=== PATIENT | female | born 1940 | race Caucasian/White ===

== ENCOUNTER 2018-03-27 19:30 | Inpatient (IN) ==
--- NOTE | 2018-03-27 20:04 | Emergency Department Note ---
Disposition Clinical Impression: Pulmonary embolism Qualifiers: Pulmonary embolism type: other Chronicity: acute Acute cor pulmonale presence: with acute cor pulmonale Qualified Code(s): I26.09 - Other pulmonary embolism with acute cor pulmonale Dyspnea Qualifiers: Dyspnea type: unspecified Qualified Code(s): R06.00 - Dyspnea, unspecified Disposition: Admitted As Inpatient Condition: Good Referrals: Anna Corona, [employer] INST[employer]ER [Primary Care Provider] - Time of Disposition: 22:42 General Adult HPI - General Chief complaint: ED Shortness of Breath/Dyspnea Stated complaint: SOB, Weakness Time Seen by Provider: 03/27/18 19:46 Source: patient, family Mode of arrival: ambulatory Limitations: no limitations Nursing Notes Reviewed: Yes Vital Signs Reviewed: Yes - History of Present Illness HPI Narrative: Patient is a 78 year old female that presents emergency Department shortness of breath. Patient states this is been ongoing for the past 3 weeks. Patient states that she will have an occasional cough. But has not had any hemoptysis. 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 Also reports that she has a past medical history of breast cancer with a lumpectomy. Patient states that she has no longer on any chemotherapy or radiation. Patient states that this feels somewhat similar to when she had a blood clot in her lungs. Patient denies any fevers or chills. Patient states that he has not otherwise had any productivity to her cough. She states that she will occasionally get chest pain located in the epigastric chest. Pain Scale: 0 - Related Data Home Medications Medication Instructions Recorded Confirmed Acetaminophen/Aspirin/Caffeine 500 mg PO Q6H PRN 12/15/17 03/14/18 [Excedrin EX] Cyanocobalamin (Vitamin B-12) 1,000 mcg PO DAILY 12/15/17 03/14/18 [Vitamin B-12] Docusate [Colace] 100 mg PO DAILY 12/15/17 03/14/18 Ergocalciferol (VITAMIN D2) 50,000 unit PO TU 12/15/17 03/14/18 [Vitamin D2] Gluc/Carlos-MSM#2/C/D3/Michael/Born 1 tab PO DAILY 12/15/17 03/14/18 [Lfeuvhyhlt-Yjkwrnzoufu-LJF Tab] Nystatin Cream [Mycostatin Cream] 1 appl TP BID PRN 12/15/17 03/14/18 Omeprazole [PriLOSEC] 20 mg PO DAILY 12/15/17 03/14/18 Calcium Carbonate [Calcium] 500 mg PO BID 03/14/18 03/14/18 Cholecalciferol (Vitamin D3) 500 unit PO BID 03/14/18 03/14/18 [Vitamin D] Previous Rx's Medication Instructions Recorded Anastrozole [Arimidex] 1 mg PO DAILY #90 tablet 03/14/18 Handicap Placard 1 each .ROUTE AD #1 each 03/14/18 Allergies Allergy/AdvReac Type Severity Reaction Status Date / Time No Known Allergies Allergy Verified 03/27/18 19:45 All systems ED: reviewed and negative except as stated. Constitutional: Denies: fever Cardiovascular: Reports: chest pain Respiratory: Reports: cough, dyspnea. Denies: wheezes, hemoptysis, sputum production Past Medical History - Past Medical History Medical history: Reports: arthritis, DVT, GERD, pulmonary embolus Surgical history: Reports: hysterectomy, orthopedic, other, other Psychiatric history: Reports: no psych history - Social History Smoking Status: Never smoker Smokeless Tobacco Status: No Alcohol use: Reports: none Drug use: Reports: none Physical Exam - General Limitations: no limitations General appearance: alert, in no apparent distress - Head Head exam: atraumatic, normocephalic - Eye Eye exam: Present: normal appearance, EOMI - Neck Neck exam: Present: normal inspection, full ROM, trachea midline - Respiratory Respiratory exam: Present: normal lung sounds bilaterally. Absent: respiratory distress, wheezes - Cardiovascular Cardiovascular exam: Present: regular rate, normal rhythm, normal heart sounds, +S1, +S2 - Abdominal Exam Abdominal exam: Present: soft, Non-Tender, normal bowel sounds - Neurological Exam Neurological exam: Present: alert, oriented X3 - Psychiatric Psychiatric exam: Present: normal affect, normal mood - Skin Skin exam: Present: warm, dry, intact Course Vital Signs Temperature 97.7 F 03/27/18 19:41 Pulse Rate 73 03/27/18 19:41 Respiratory Rate 22 03/27/18 19:41 Blood Pressure 138/88 03/27/18 19:41 O2 Sat by Pulse Oximetry 94 03/27/18 19:41 Temperature 97.7 F 03/27/18 19:41 Pulse Rate 69 03/27/18 21:30 Respiratory Rate 15 03/27/18 21:30 Blood Pressure 144/80 03/27/18 21:30 O2 Sat by Pulse Oximetry 97 03/27/18 21:30 Oxygen Delivery Oxygen Delivery Nasal Cannula Medical Decision Making - MDM Narrative Medical decision making narrative: Due to the patient presenting to the emergency department with reports of shortness of breath and a history of PE and breast cancer there is concern that there could potentially be a cardiac versus pulmonary etiology. We will obtain basic laboratory tests included CBC, BMP, troponin chest x-ray and EKG. A d- dimer will also be obtained. A CTA of the chest will be obtained due to the patient having a significantly elevated d-dimer greater than 5000. CT of the chest was positive for pulmonary emboli. Patient had bilateral PEs. There was evidence of heart strain on the CT scan. Patient was started on standard dose heparin drip will be admitted to the hospital. The patient did not have any acute ischemic changes on her EKG. Troponin was not elevated. The patient's BNP was 542. The remainder the laboratory testing was relatively unremarkable. I called and spoke the admitting hospitalist and he has accepted the patient to their service. Patient be admitted to the hospital at this time for further evaluation and management. - Medical Records Medical records reviewed: Yes I reviewed the patient's medical records. - Lab Data Lab results reviewed: Yes I reviewed the patient's lab results. Result diagrams: 03/27/18 20:18 03/27/18 20:18 Lab Results 03/27/18 03/27/18 03/27/18 Range/Units 20:18 20:18 20:18 WBC 4.6 (4.3-11.1) K/mcL RBC 4.74 (3.82-4.97) M/mcL Hgb 13.7 (11.5-15.4) g/dL Hct 42.6 (35.3-44.9) % MCV 89.9 (83.0-100.0) fL MCH 28.9 (28.0-33.3) pg MCHC 32.2 (31.6-35.5) g/dL RDW 15.0 H (11.5-14.5) % Plt Count 223 (140-400) K/mcL MPV 10.0 (9.4-12.4) fL Immature Gran % 0.2 (0-4) % Seg Neutrophils % 51.7 % Lymphocytes % 37.9 % Monocytes % 8.7 % Eosinophils % 1.1 % Basophils % 0.4 % Neutrophils # 2.4 (1.6-8.9) K/mcL Lymphocytes # 1.7 (0.6-4.6) K/mcL Monocytes # 0.4 (0.0-1.3) K/mcL Eosinophils # 0.1 (0.0-0.6) K/mcL Basophils # 0.0 (0.0-0.2) K/mcL PT 12.1 (9.4-12.1) Seconds INR 1.1 D-Dimer 5286 H (0-500) ng/mLFEU Sodium 141 (136-145) mEq/L Potassium 3.4 L (3.5-5.1) mEq/L Chloride 112 H (98-107) mEq/L Carbon Dioxide 20 L (23-29) mEq/L BUN 25 H (8-23) mg/dL Creatinine 0.79 (0.60-1.20) mg/dL Est GFR ( Amer) > 60 (> 60) Est GFR (Non-Af Amer) > 60 (> 60) BUN/Creatinine Ratio 32 H (6-26) Glucose 105 (70-105) mg/dL Calculated Osmolality 297 (280-300) Lactic Acid (0.5-2.2) mmol/L Calcium 8.9 (8.6-10.3) mg/dL Troponin I < 0.03 (< 0.04) ng/mL B-Natriuretic Peptide (Less than 100) pg/mL 03/27/18 03/27/18 Range/Units 20:18 20:18 WBC (4.3-11.1) K/mcL RBC (3.82-4.97) M/mcL Hgb (11.5-15.4) g/dL Hct (35.3-44.9) % MCV (83.0-100.0) fL MCH (28.0-33.3) pg MCHC (31.6-35.5) g/dL RDW (11.5-14.5) % Plt Count (140-400) K/mcL MPV (9.4-12.4) fL Immature Gran % (0-4) % Seg Neutrophils % % Lymphocytes % % Monocytes % % Eosinophils % % Basophils % % Neutrophils # (1.6-8.9) K/mcL Lymphocytes # (0.6-4.6) K/mcL Monocytes # (0.0-1.3) K/mcL Eosinophils # (0.0-0.6) K/mcL Basophils # (0.0-0.2) K/mcL PT (9.4-12.1) Seconds INR D-Dimer (0-500) ng/mLFEU Sodium (136-145) mEq/L Potassium (3.5-5.1) mEq/L Chloride (98-107) mEq/L Carbon Dioxide (23-29) mEq/L BUN (8-23) mg/dL Creatinine (0.60-1.20) mg/dL Est GFR ( Amer) (> 60) Est GFR (Non-Af Amer) (> 60) BUN/Creatinine Ratio (6-26) Glucose (70-105) mg/dL Calculated Osmolality (280-300) Lactic Acid 1.1 (0.5-2.2) mmol/L Calcium (8.6-10.3) mg/dL Troponin I (< 0.04) ng/mL B-Natriuretic Peptide 542 H (Less than 100) pg/mL - Radiology Data Radiology results reviewed: Yes I reviewed the patient's radiology results. Chest X-Ray 03/27/18 20:01 IMPRESSION: No acute process. D/ / Florentin Viramontes MD / Florentin Viramontes MD Interpreting Provider: Florentin Viramontes MD Chest CTA 03/27/18 20:45 IMPRESSION: Bilateral central pulmonary emboli. There are CT signs which can be seen with right heart strain including increased RV/LV ratio as well as reflux of contrast into the intrahepatic inferior vena cava and hepatic veins. Findings were called to the ordering service at 10:16 pm on 03/27/2018. D/ / June Wynn Cha, MD / June Wynn Cha, MD Interpreting Provider: June Wynn Cha, MD - EKG Data EKG #1 EKG attestation: Yes I reviewed and interpreted this EKG. EKG results narrative: EKG shows sinus rhythm at a rate of 72 bpm, [place] interval 144, curious duration 96, QTc of 494. There is no evidence of STEMI on EKG. There are diffuse T-wave inversions in the anterior lateral and inferior leads. Attestation Statement - Attestation Attestation: I, Kyaw Arredondo, examined this patient and my medical decision-making was reviewed with the PHERESIS SPECIALIST/PA/Advanced Practice Nurse/Resident Physician. I agree with the documented findings, disposition and treatment plan as described except to the extent set forth below. 78-year-old female presents emergency Department with concerns of shortness of breath. Patient states she becomes short of breath with exertion over the past 3 weeks. Patient has a history of prior DVT and PE. Patient recently diagnosed with breast cancer and is status post resection. Patient has mild intermittent chest pain which is described as a pressure in the center of her chest with exertion. Denies fever, chills, nausea, vomiting, cough, fever, chills, abdominal pain. Patient had elevated d-dimer. CTA of the chest showed large bilateral central PEs. Initial troponin negative. Patient started on heparin and admitted to hospitalist.
[2018-03-27 20:33] LABS: Basophils % 0.4 %; Eosinophils # 0.1 K/mcL (0.0-0.6); Eosinophils % 1.1 %; Hematocrit 42.6 % (35.3-44.9); Hemoglobin 13.7 g/dL (11.5-15.4); Immature Granulocytes % 0.2 % (0-4); Lymphocytes # 1.7 K/mcL (0.6-4.6); Lymphocytes % 37.9 %; Mean Corpuscular HGB Conc 32.2 g/dL (31.6-35.5); Mean Corpuscular Hemoglobin 28.9 pg (28.0-33.3); Mean Corpuscular Volume 89.9 fL (83.0-100.0); Monocytes # 0.4 K/mcL (0.0-1.3); Monocytes % 8.7 %; Neutrophils # 2.4 K/mcL (1.6-8.9); Platelet Count 223 K/mcL (140-400); Red Blood Count 4.74 M/mcL (3.82-4.97); Segmented Neutrophils % 51.7 %
[2018-03-27 20:41] LABS: INR 1.1; Prothrombin Time 12.1 Seconds (9.4-12.1)
[2018-03-27] MEDS ORDERED: Isovue-370 500 ML INFUS..BTL IV ONE (20:45)
[2018-03-27 20:52] LABS: BUN/Creatinine Ratio 32 (6-26); Blood Urea Nitrogen 25 mg/dL (8-23); Calcium 8.9 mg/dL (8.6-10.3); Carbon Dioxide 20 mEq/L (23-29); Chloride 112 mEq/L (98-107); Glucose 105 mg/dL (70-105); Osmolality,Calculated 297 (280-300); Potassium 3.4 mEq/L (3.5-5.1); Sodium 141 mEq/L (136-145); eGFR For Non-African Americans > 60 (> 60)
[2018-03-27 20:53] LABS: Troponin I < 0.03 ng/mL (< 0.04)
[2018-03-27] MEDS ORDERED: *HR* Heparin 5,000 UNIT/ML VIAL IVP PRN ×2 (22:25)
[2018-03-27] MEDS ORDERED: *HR* Heparin 5,000 UNIT/ML VIAL IVP ONE (22:25)
[2018-03-27] MEDS ORDERED: Heparin 25,000 UNIT/500 ML D5W 25,000 UNIT/500 ML BAG IVC SCH (22:30)
[2018-03-27] MEDS ORDERED: Naloxone 0.4 MG/ML INJ IVP PRN (22:58)
--- NOTE | 2018-03-27 23:10 | Internal Med History&Physical ---
Date of Encounter: 03/27/18 Time of Encounter: 23:09 Internal Medicine - H&P: HPI Chief complaint: Short of breath History of present illness: Ms. Kaiser is a 78 year old female with a past medical history of arthritis, PE/DVT (treated with 6 months anticoagulation) and recently diagnosed breast cancer earlier this year who presented to the ED due to difficulty breathing. Her shortness of breath has been ongoing for the past 3 weeks associated with an occasional non-productive cough and is associated primarily with exertion. Her shortness of breath with exertion has become progressively worse and today noted one episode of lightheadedness. Patient reports symptoms appear similar when she had a previous blood clot in her lungs. Denies any fever, chills, hem optysis or chest pain. On arrival patient was afebrile and hemodynamically stable satting at 94% on 2 L. laboratory workup was notable for an elevated d-dimer of over 5000. CTA was performed which showed bilateral central pulmonary emboli associated with right heart strain. Initial troponin and EKG were unremarkable. She was started on heparin in the ED and brought up for observation. Past Med Surg Social Fam HX - Past Medical History Medical history: arthritis, DVT, GERD, pulmonary embolus Additional medical history: rosacea,cataracts, left breast intraductal carcinoma grade II Psychiatric history: no psych history - Past Surgical History Surgical History: hysterectomy, orthopedic, other, other Additional surgical history: hysterectomy/bladder repair-1974, right bunionectomy,left bunionectmy,colonoscopy,left forearm,replace plate left forearm,replaced rods and screws in left forearm,left forearm removal of deep implant loose K wire,ultra sound guided left breast biopsy - Social History Smoking Status: Never smoker Smokeless Tobacco Status: No Alcohol use: none Drug use: none - Family History Father Hx Family Cancer: Yes (stomach) Internal Medicine - H&P: Meds Acetaminophen/Aspirin/Caffeine [Excedrin EX] 500 mg PO Q6H PRN 12/15/17 [History] Cyanocobalamin (Vitamin B-12) [Vitamin B-12] 1,000 mcg PO DAILY 12/15/17 [History] Docusate [Colace] 100 mg PO DAILY 12/15/17 [History] Ergocalciferol (VITAMIN D2) [Vitamin D2] 50,000 unit PO TU 12/15/17 [History] Gluc/Carlos-MSM#2/C/D3/Michael/Born [Wuphqhoolt-Mrgtmxzkiel-EGC Tab] 1 tab PO DAILY 12/15/17 [History] Nystatin Cream [Mycostatin Cream] 1 appl TP BID PRN 12/15/17 [History] Omeprazole [PriLOSEC] 20 mg PO DAILY 12/15/17 [History] Anastrozole [Arimidex] 1 mg PO DAILY #90 tablet 03/14/18 [Rx] Calcium Carbonate [Calcium] 500 mg PO BID 03/14/18 [History] Cholecalciferol (Vitamin D3) [Vitamin D] 500 unit PO BID 03/14/18 [History] Handicap Placard 1 each .ROUTE AD #1 each 03/14/18 [Rx] Allergy/AdvReac Type Severity Reaction Status Date / Time No Known Allergies Allergy Verified 03/27/18 19:45 All Systems PM: A 10-system review of systems was performed and is negative for pertinent findings except as documented above in the HPI. - Constitutional Constitutional: no chills, no fever(s), no night sweats - EENT Eyes: no change in vision, no discharge, no pain, no photophobia Ears: no ear discharge, no ear pain, no tinnitus Nose, mouth and throat: no dysphagia, no nasal discharge, no neck pain, no sore throat - Cardiovascular Cardiovascular ROS IM: no chest pain, no diaphoresis, no dyspnea, no l ightheadedness, no palpitations, no syncope - Respiratory Respiratory: no cough, no dyspnea, no wheezing, no excessive phlegm production - Gastrointestinal Gastrointestinal: no abdominal pain, no diarrhea, no hematemesis, no hematochezia, no melena, no nausea, no vomiting - Genitourinary Genitourinary: no change in urinary stream, no dysuria, no flank pain, no hematuria - Musculoskeletal Musculoskeletal ROS IM: no numbness, no tingling - Integumentary Integumentary IM: no rash, no unusual bruising - Neurological Neurological ROS: no confusion, no convulsions, no focal weakness, no numbness, no tingling, no tremor(s) - Hematologic/Lymphatic Hematologic/Lymphatic: no easy bruising - Constitutional Vitals: Temp Pulse Resp BP Pulse Ox 97.7 F 69 15 144/80 97 03/27/18 19:41 03/27/18 21:30 11/26/18 21:30 03/27/18 21:30 03/27/18 21:30 Exam: General: Alert and oriented 3; lying in bed in no acute distress Skin:Normal color, no rash, no lesions. HEENT:EOM, pupils equal, round and reactive. Cardiovascular:Normal S1 & S2, no rubs, murmurs or gallops. No JVD. Pulse regular. Lungs:Normal breath sounds, no wheezes or crackles. Abdomen:Soft, non-tender, no rigidity. Extremities:No deformity, no edema or tenderness, no joint swelling or clubbing. Neurological:Normal cognition and motor skills. Pulses:Carotid and radial pulses normal +2. Rest of the physical exam is non contributory Internal Med - H&P Results - Labs CBC & Chem 7: 03/28/18 01:36 03/28/18 01:36 Labs: Short CBC 03/27/18 Range/Units 20:18 WBC 4.6 (4.3-11.1) K/mcL Hgb 13.7 (11.5-15.4) g/dL Hct 42.6 (35.3-44.9) % Plt Count 223 (140-400) K/mcL Neutrophils # 2.4 (1.6-8.9) K/mcL BMP 03/27/18 20:18 Sodium 141 Potassium 3.4 L Chloride 112 H Carbon Dioxide 20 L BUN 25 H Creatinine 0.79 Glucose 105 Calcium 8.9 Cardiac Enzymes 03/27/18 Range/Units 20:18 Troponin I < 0.03 (< 0.04) ng/mL - Impressions ITS Impressions Chest X-Ray 03/27/18 20:01 IMPRESSION: No acute process. D/ / Florentin Viramontes MD / Florentin Viramontes MD Interpreting Provider: Florentin Viramontes MD Chest CTA 03/27/18 20:45 IMPRESSION: Bilateral central pulmonary emboli. There are CT signs which can be seen with right heart strain including increased RV/LV ratio as well as reflux of contrast into the intrahepatic inferior vena cava and hepatic veins. Findings were called to the ordering service at 10:16 pm on 03/27/2018. D/ / June Wynn Cha, MD / June Wynn Cha, MD Interpreting Provider: June Wynn Cha, MD - Assessment and plan (1) Dyspnea Current Visit: Yes Status: Acute Assessment and plan: 3 week history of worsening dyspnea upon exertion secondary most likely secondary to bilateral central PEs as seen on CTA in the setting of history of breast cancer. Patient stable from a respiratory standpoint -Continue supportive care -Heparin drip Qualifiers: Dyspnea type: unspecified Qualified Code(s): R06.00 - Dyspnea, unspecified (2) Pulmonary embolism Current Visit: Yes Status: Acute Assessment and plan: CT angiogram demonstrates bilateral pulmonary emboli which can be seen with right heart strain. Initial EKG and troponins were negative. Patient does not have any reports of chest pain at this time. Respiratory status stable. Currently on heparin drip. -Continue with heparin drip -Transition to PO anticoagulant tomorrow -Consider pulmonary consult and echocardiogram. Qualifiers: Pulmonary embolism type: other Chronicity: acute Qualified Code(s): I26.99 - Other pulmonary embolism without acute cor pulmonale (3) Breast cancer Current Visit: No Status: Acute Assessment and plan: Invasive ductal carcinoma. Patient followed by Dr. Anderson's outpatient. Qualifiers: Breast location: lower inner quadrant of breast Estrogen receptor status: positive Patient sex: female Laterality: left Qualified Code(s): C50.312 - Malignant neoplasm of lower-inner quadrant of left female breast; Z17.0 - Estrogen receptor positive status [ER+] - Time Spent With Patient Total time spent is greater than 50% in coordination of care (as documented) at patient's floor/unit and/or counseling patient:
[2018-03-27 23:14] LABS: Heparin anti-factor XA UFH 0.04 IU/mL (0.30-0.70)
[2018-03-27 23:15] LABS: Prothrombin Time 11.7 Seconds (9.4-12.1)
[2018-03-28 02:05] LABS: Alanine Aminotransferase 174 Units/L (7-52); Albumin 3.9 g/dL (3.5-5.7); Albumin/Globulin Ratio 1.2 (1.1-2.2); Alkaline Phosphatase 142 Units/L (34-104); Aspartate Amino Transferase 67 Units/L (13-39); BUN/Creatinine Ratio 26 (6-26); Bilirubin,Total 0.9 mg/dL (0.3-1.0); Blood Urea Nitrogen 21 mg/dL (8-23); Calcium 8.9 mg/dL (8.6-10.3); Carbon Dioxide 21 mEq/L (23-29); Chloride 110 mEq/L (98-107); Globulin 3.2 g/dL (2.4-3.5); Glucose 119 mg/dL (70-105); Osmolality,Calculated 298 (280-300); Potassium 3.6 mEq/L (3.5-5.1); Sodium 142 mEq/L (136-145); Total Protein 7.1 g/dL (6.4-8.9); eGFR For Non-African Americans > 60 (> 60)
[2018-03-28 02:15] LABS: Basophils % 0.4 %; Eosinophils # 0.1 K/mcL (0.0-0.6); Eosinophils % 1.1 %; Hematocrit 44.9 % (35.3-44.9); Hemoglobin 14.5 g/dL (11.5-15.4); Immature Granulocytes % 0.4 % (0-4); Lymphocytes # 2.2 K/mcL (0.6-4.6); Lymphocytes % 40.2 %; Mean Corpuscular HGB Conc 32.3 g/dL (31.6-35.5); Mean Corpuscular Hemoglobin 28.9 pg (28.0-33.3); Mean Corpuscular Volume 89.6 fL (83.0-100.0); Monocytes # 0.4 K/mcL (0.0-1.3); Monocytes % 7.3 %; Neutrophils # 2.7 K/mcL (1.6-8.9); Platelet Count 239 K/mcL (140-400); Red Blood Count 5.01 M/mcL (3.82-4.97); Red Cell Distribution Width 15.5 % (11.5-14.5); Segmented Neutrophils % 50.6 %
[2018-03-28 06:43] LABS: Heparin anti-factor XA UFH 0.53 IU/mL (0.30-0.70)
[2018-03-28 07:56] LABS: INR 1.1; Prothrombin Time 12.2 Seconds (9.4-12.1)
[2018-03-28 07:59] LABS: Activated Partial Thrombo Time 85.8 Seconds (26.0-36.0)
[2018-03-28] MEDS ORDERED: *HR* Enoxaparin 80 MG/0.8 ML SYRINGE SQ SCH (09:00)
[2018-03-28] MEDS: *HR* Enoxaparin 80 MG/0.8 ML SYRINGE SQ SCH ×2 (09:54→20:18)
--- NOTE | 2018-03-28 09:59 | Internal Med Progress Note ---
Hospitalist Progress Note - Encounter Date of Encounter: 03/28/18 Time of Encounter: 09:56 - Subjective Interval History: I have seen and evaluated the patient at bedside. she reports that she is still feeling short of breath with minimal exertion. Denies chest pain, abdominal pain, nausea vomiting. Denies blood in her urine or her stool. - Exam Vitals: Temp Pulse Resp BP Pulse Ox 97.5 F L 58 16 115/77 94 03/28/18 06:41 03/28/18 06:41 03/28/18 06:41 03/28/18 06:41 03/28/18 06:41 Exam: Vitals: Reviewed General: Alert and oriented x4. In mild distress due to SOB with minimal exertion. Skin: Normal color, no rash, no lesions. HEENT: EOM, pupils equal, round and reactive. Cardiovascular: RRR, Normal S1 & S2, no rubs, murmurs or gallops. No JVD. Lungs: Clear to auscultation bilaterally, no wheezes or crackles. Abdomen: Soft, non-tender, no rigidity. Extremities: No deformity, no edema or tenderness, no joint swelling or clubbing. Neurological: Normal cognition and motor skills. Rest of the physical exam is non contributory - Assessment and Plan (1) Pulmonary embolism Current Visit: Yes Status: Acute Assessment and Plan: Patient reports shortness of breath with minimal exertion. Denies chest pain. Plan Discontinue heparin drip Started on Enoxaparin 80mg SubQ BID HeM&Onc has been consulted to discuss best detention anticoalation option for this patient with Hx of DVT/PE 3 years ago and ductal breast CA s/p partial mastectomy and lymph nose director heart in November 2017. (2) Breast cancer Current Visit: No Status: Acute Assessment and Plan: s/p partialleft mastectomy with 5 lymph node director heart on November 2017. Patient reports that she was on letrozole follwing the surgery but she discontinue the medication about 3 weeks ago due to shortness of breath. Outpatient follow-up with (3) Transaminitis Current Visit: Yes Status: Acute Assessment and Plan: Unclear etiology. Possible due to low perfusion following submassive pulmonary embolism Plan Liver ultrasound Repeat LFTs in the morning. DVT Prophylaxis: Patient on full dose anticoagulation due to pulmonary embolism. - Summary of Assessment and Plan Summary of Assessment and Plan: Patient to remain in the hospital due to dyspnea with minimal exertion secondary to submassive pulmonary embolism. - Time Spent with Patient Total time spent is greater than 50% in coordination of care (as documented) at patient's floor/unit and/or counseling patient: Greater than 35 minutes (40) Plan of Care Discussed with: patient (And the nurse.) Internal Medicine: Result - Labs CBC & Chem 7: 03/28/18 01:36 03/28/18 01:36 Labs: Short CBC 03/27/18 03/28/18 Range/Units 20:18 01:36 WBC 4.6 5.4 (4.3-11.1) K/mcL Hgb 13.7 14.5 (11.5-15.4) g/dL Hct 42.6 44.9 (35.3-44.9) % Plt Count 223 239 (140-400) K/mcL Neutrophils # 2.4 2.7 (1.6-8.9) K/mcL BMP 03/27/18 03/28/18 20:18 01:36 Sodium 141 142 Potassium 3.4 L 3.6 Chloride 112 H 110 H Carbon Dioxide 20 L 21 L BUN 25 H 21 Creatinine 0.79 0.82 Glucose 105 119 H Calcium 8.9 8.9 Cardiac Enzymes 03/27/18 03/28/18 03/28/18 Range/Units 20:18 01:36 08:01 Troponin I < 0.03 < 0.03 < 0.03 (< 0.04) ng/mL Liver Function 03/28/18 Range/Units 01:36 Total Bilirubin 0.9 (0.3-1.0) mg/dL AST 67 H (13-39) Units/L ALT 174 H (7-52) Units/L Alkaline Phosphatase 142 H (34-104) Units/L Albumin 3.9 (3.5-5.7) g/dL - ABG Interpretation ABG results: PT/INR, D-dimer PT 12.2 Seconds (9.4-12.1) H 03/28/18 05:49 D-Dimer 5286 ng/mLFEU (0-500) H 03/27/18 20:18 - Impressions Impressions Chest X-Ray 03/27/18 20:01 IMPRESSION: No acute process. D/ / Florentin Viramontes MD / Florentin Viramontes MD Interpreting Provider: Florentin Viramontes MD Chest CTA 03/27/18 20:45 IMPRESSION: Bilateral central pulmonary emboli. There are CT signs which can be seen with right heart strain including increased RV/LV ratio as well as reflux of contrast into the intrahepatic inferior vena cava and hepatic veins. Findings were called to the ordering service at 10:16 pm on 03/27/2018. D/ / June Wynn Cha, MD / June Wynn Cha, MD Interpreting Provider: June Wynn Cha, MD Consult Discharge Plan - Plan Referrals: Anna Corona, BUGG[employer] OPERATOR [Primary Care Provider] - (1) Pulmonary embolism Qualifiers: Pulmonary embolism type: other Chronicity: acute Qualified Code(s): I26.99 - Other pulmonary embolism without acute cor pulmonale (2) Breast cancer Qualifiers: Breast location: lower inner quadrant of breast Estrogen receptor status: positive Patient sex: female Laterality: left Qualified Code(s): C50.312 - Malignant neoplasm of lower-inner quadrant of left female breast; Z17.0 - Estrogen receptor positive status [ER+]
[2018-03-29 05:03] LABS: Basophils % 0.6 %; Eosinophils # 0.1 K/mcL (0.0-0.6); Eosinophils % 1.7 %; Hematocrit 39.3 % (35.3-44.9); Hemoglobin 12.9 g/dL (11.5-15.4); Lymphocytes # 1.8 K/mcL (0.6-4.6); Mean Corpuscular HGB Conc 32.8 g/dL (31.6-35.5); Mean Corpuscular Hemoglobin 29.2 pg (28.0-33.3); Mean Corpuscular Volume 88.9 fL (83.0-100.0); Mean Platelet Volume 9.9 fL (9.4-12.4); Monocytes # 0.3 K/mcL (0.0-1.3); Monocytes % 6.6 %; Neutrophils # 2.4 K/mcL (1.6-8.9); Platelet Count 230 K/mcL (140-400); Red Blood Count 4.42 M/mcL (3.82-4.97); Red Cell Distribution Width 15.3 % (11.5-14.5); Segmented Neutrophils % 52.1 %
[2018-03-29 05:25] LABS: Alanine Aminotransferase 103 Units/L (7-52); Albumin 3.5 g/dL (3.5-5.7); Albumin/Globulin Ratio 1.3 (1.1-2.2); Alkaline Phosphatase 117 Units/L (34-104); Aspartate Amino Transferase 27 Units/L (13-39); BUN/Creatinine Ratio 27 (6-26); Bilirubin,Direct 0.2 mg/dL (0.0-0.2); Bilirubin,Indirect 0.4 mg/dL (0.0-1.2); Bilirubin,Total 0.6 mg/dL (0.3-1.0); Blood Urea Nitrogen 20 mg/dL (8-23); Calcium 8.9 mg/dL (8.6-10.3); Carbon Dioxide 21 mEq/L (23-29); Chloride 112 mEq/L (98-107); Globulin 2.6 g/dL (2.4-3.5); Glucose 100 mg/dL (70-105); Magnesium 1.9 mg/dL (1.6-2.6); Osmolality,Calculated 299 (280-300); Phosphorous 3.7 mg/dL (2.7-4.5); Potassium 3.8 mEq/L (3.5-5.1); Sodium 143 mEq/L (136-145); Total Protein 6.1 g/dL (6.4-8.9); eGFR For Non-African Americans > 60 (> 60)
[2018-03-29] MEDS: *HR* Enoxaparin 80 MG/0.8 ML SYRINGE SQ SCH (07:49)
--- NOTE | 2018-03-29 08:47 | Discharge Summary ---
- NOTES TO OUTPATIENT PROVIDER Notes to Outpatient Provider: Follow up with Hem&Onc within 1-2 weeks of hospital discharge. Orders not resulted at time of discharge: Pending orders 03/29/18 08:42 UA w. reflex microscopic [Urinalysis reflex Microscopic] [URIN] Stat Date of Encounter: 03/29/18 Time of Encounter: 08:42 - Discharge Diagnosis (1) Pulmonary embolism Priority: Primary Status: Acute Qualifiers: Pulmonary embolism type: other Chronicity: acute Qualified Code(s): I26.99 - Other pulmonary embolism without acute cor pulmonale (2) Breast cancer Priority: Secondary Status: Chronic Qualifiers: Breast location: lower inner quadrant of breast Estrogen receptor status: positive Patient sex: female Laterality: left Qualified Code(s): C50.312 - Malignant neoplasm of lower-inner quadrant of left female breast; Z17.0 - Estrogen receptor positive status [ER+] (3) Transaminitis Priority: Secondary Status: Acute (4) Urinary tract infection Priority: Secondary Status: Acute Qualifiers: Urinary tract infection type: site unspecified Hematuria presence: without hematuria Qualified Code(s): N39.0 - Urinary tract infection, site not specified Hospital course: Ms. Kaiser is a 78 year old female past medical history of arthritis, PE/DVT (treated with 6 months anticoagulation) and recently diagnosed breast cancer earlier this year who presented to the ED due to difficulty breathing. CTA was performed which showed bilateral central pulmonary emboli associated with right heart strain. Patient started on full dose anticoagulation with Lovenox. Hem&Onc consulted for outpatient continuity of care recommended to discharge patient on Xarelto started pack and follow up with them. Patient found to have elevated liver enzymes. Liver US done: IMPRESSION: 1. Cholelithiasis but no sonographic features of acute cholecystitis. 2. Echogenic liver compatible with hepatic steatosis. Patient recommended to have a repeat LFTs within 1-2 weeks of hospital discharge. - Time Spent with Patient Total time spent providing and/or coordinating discharge services: Greater than 30 minutes - Discharge Medications Prescriptions: Rivaroxaban [Xarelto] 15 mg PO BID 15 Days #42 tablet Sulfamethoxazole/Trimeth DS [Bactrim Ds] 1 each PO BID 3 Days #6 tablet Home Medications: Acetaminophen/Aspirin/Caffeine [Excedrin EX] 500 mg PO Q6H PRN 12/15/17 [History] Cyanocobalamin (Vitamin B-12) [Vitamin B-12] 1,000 mcg PO DAILY 12/15/17 [History] Docusate [Colace] 100 mg PO DAILY 12/15/17 [History] Ergocalciferol (VITAMIN D2) [Vitamin D2] 50,000 unit PO TH 12/15/17 [History] Nystatin Cream [Mycostatin Cream] 1 appl TP BID PRN 12/15/17 [History] Omeprazole [PriLOSEC] 20 mg PO DAILY 12/15/17 [History] Anastrozole [Arimidex] 1 mg PO DAILY #90 tablet 03/14/18 [Rx] Calcium Carbonate [Calcium] 500 mg PO BID 03/14/18 [History] Joint Juice 1 bottle PO DAILY 03/29/18 [History] Rivaroxaban [Xarelto] 15 mg PO BID 15 Days #42 tablet 03/29/18 [Rx] Sulfamethoxazole/Trimeth DS [Bactrim Ds] 1 each PO BID 3 Days #6 tablet 03/29/18 [Rx] Allergies/Adverse Reactions: Allergy/AdvReac Type Severity Reaction Status Date / Time No Known Allergies Allergy Verified 03/27/18 19:45 Date of admission: 03/28/18 14:10 Primary care physician: Anna Corona CNP Consults: 03/27/18 23:06 Consult to Pulmonology [CONS] Routine Consulting Provider: [facility] Reason for Consult: B/L PE in the setting of recent diagnosis off Breast CA Call Completed: No 03/28/18 07:30 Consult to Oncology Hematology [CONS] Routine Consulting Provider: Jamie Swartz Reason for Consult: Hx of Breast CA and PE. Admitted to new PE. retirement outpatient anticoagulation. Call Completed: No - Constitutional Vitals: Temp Pulse Resp BP Pulse Ox 98.0 F 62 17 119/77 94 03/29/18 06:58 03/29/18 06:58 03/29/18 06:58 03/29/18 06:58 03/29/18 06:58 Exam: Vitals: Reviewed General: Alert and oriented x4. In mild distress due to SOB with minimal exertion. Skin: Normal color, no rash, no lesions. Cardiovascular: RRR, Normal S1 & S2, no rubs, murmurs or gallops. No JVD. Lungs: Clear to auscultation bilaterally, no wheezes or crackles. Abdomen: Soft, non-tender, no rigidity. Extremities: No deformity, no edema or tenderness, no joint swelling or clubbing. Neurological: Normal cognition. CN II-XII intact. Rest of the physical exam is non contributory - Patient Status Disposition: Home, Self-Care Condition: Good Functional capacity at discharge: independent ambulation Overall status at discharge: patient is back to baseline - Discharge Instructions Instructions: Rivaroxaban (By mouth), Pulmonary Embolism (DC) Follow Up With: Anna Corona CNP [Primary Care Provider] - 04/05/18 10:30 am (Please follow up as schedule...) Rosina Anderson MD [Partnered Physician] - 04/18/18 2:10 pm (Please follow up as schedule...) - Diet and Activity Activity: resume usual activities as tolerated Diet: low salt diet
[2018-03-29 10:13] LABS: Bilirubin,Urine Negative (Negative); Blood,Urine Moderate (Negative); Clarity,Urine Cloudy (Clear); Color,Urine Yellow (Yellow); Glucose,Urine (UA) Normal (Normal); Ketones,Urine Negative (Negative); Leukocyte Esterase,Urine Small (Negative); Nitrite,Urine Positive (Negative); PH,Urine 5.5 pH Units (5.0-8.0); Protein,Urine Negative (Neg-Trace); Specific Gravity,Urine 1.013 (1.010-1.025); Urobilinogen,Urine Normal (Normal)
[2018-03-29 10:15] LABS: Bacteria,Urine Many per hpf (None-Few); Hyaline Casts,Urine None Seen per lpf (None-Few); Squamous Epithelial Cell,Urine Many per lpf (None-Few); WBC,Urine 15-30 per hpf (0-3)
[2018-03-29] MEDS ORDERED: Sulfamethoxazole/Trimeth DS 1 EACH TABLET PO SCH (11:00)
[2018-03-29 11:32] VITALS: BP 134/78
--- NOTE | 2018-03-29 15:12 | Electrocardiograph Report ---
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
== END 2018-03-29 15:50 | disposition home or self-care (01) | DRG 176 ==
LOC: EMEROOARM 19:30 → 2ANU 19:30 → SUATTDRO 22:48 → 2ANU 03-28 00:06
PROVIDERS: ADMIT Internal Medicine; ATTEND Internal Medicine

== ENCOUNTER 2021-03-06 14:11 | Inpatient (IN) ==
[2021-03-06] MEDS ORDERED: *HR* Heparin 5,000 UNIT/ML VIAL IVP ONE (16:25)
[2021-03-06] MEDS ORDERED: Naloxone 0.4 MG/ML INJ IVP PRN (16:25)
[2021-03-06] MEDS ORDERED: Perflutren Lipid Microsphere 1.3 ML in 0.9 % Sodium Chloride 8.7 ML IVP PRN (16:25)
[2021-03-06] MEDS ORDERED: Ondansetron 4 MG/2 ML VIAL IVP PRN (16:25)
[2021-03-06] MEDS ORDERED: Melatonin 3 MG TABLET PO PRN (16:25)
[2021-03-06] MEDS ORDERED: Aspirin 325 MG TABLET PO ONE (16:25)
[2021-03-06] MEDS ORDERED: *HR* Heparin 5,000 UNIT/ML VIAL IVP PRN ×2 (16:25)
[2021-03-06] MEDS ORDERED: Nitroglycerin 0.4 MG TAB.SUBL SL PRN (16:25)
[2021-03-06] MEDS ORDERED: Heparin 25,000UNIT/250ML 1/2NS 25,000 UNIT/250 ML IV.SOLN IVC SCH (16:30)
[2021-03-06] MEDS: cefTRIAXone 1,000 MG in Water for inj. (sterile) 10 ML IVP SCH (17:20)
[2021-03-06 17:29] LABS: Hematocrit 39.6 % (35.3-44.9); Hemoglobin 12.9 g/dL (11.5-15.4); Mean Corpuscular HGB Conc 32.6 g/dL (31.6-35.5); Mean Corpuscular Hemoglobin 31.4 pg (28.0-33.3); Mean Corpuscular Volume 96.4 fL (83.0-100.0); Mean Platelet Volume 9.3 fL (9.4-12.4); Platelet Count 186 K/mcL (140-400); Red Blood Count 4.11 M/mcL (3.82-4.97); Red Cell Distribution Width 14.8 % (11.5-14.5)
[2021-03-06 17:39] LABS: Heparin anti-factor XA UFH 0.85 IU/mL (0.30-0.70); INR 1.3; Prothrombin Time 14.2 Seconds (9.4-12.1)
[2021-03-06] MEDS: dexAMETHasone 4 MG TABLET PO SCH (18:09)
[2021-03-06] MEDS: 0.9 % Sodium Chloride 1,000 ML IVC SCH (20:16)
[2021-03-07 00:53] LABS: Basophils % 0.3 %; Eosinophils % 0.1 %; Hematocrit 38.3 % (35.3-44.9); Hemoglobin 12.5 g/dL (11.5-15.4); Immature Granulocytes % 0.3 % (0-4); Lymphocytes # 0.9 K/mcL (0.6-4.6); Lymphocytes % 12.4 %; Mean Corpuscular HGB Conc 32.6 g/dL (31.6-35.5); Mean Corpuscular Hemoglobin 32.1 pg (28.0-33.3); Mean Corpuscular Volume 98.2 fL (83.0-100.0); Mean Platelet Volume 9.4 fL (9.4-12.4); Monocytes # 0.3 K/mcL (0.0-1.3); Monocytes % 4.1 %; Neutrophils # 5.7 K/mcL (1.6-8.9); Platelet Count 200 K/mcL (140-400); Segmented Neutrophils % 82.8 %; White Blood Count 6.9 K/mcL (4.3-11.1)
[2021-03-07 00:59] LABS: Prothrombin Time 11.3 Seconds (9.4-12.1)
[2021-03-07 06:05] LABS: Alanine Aminotransferase 11 Units/L (7-52); Albumin 3.1 g/dL (3.5-5.7); Albumin/Globulin Ratio 1.7 (1.1-2.2); Alkaline Phosphatase 20 Units/L (34-104); Aspartate Amino Transferase 18 Units/L (13-39); BUN/Creatinine Ratio 44 (6-26); Bilirubin,Total 0.3 mg/dL (0.3-1.0); Blood Urea Nitrogen 31 mg/dL (8-23); Calcium 8.1 mg/dL (8.6-10.3); Carbon Dioxide 23 mEq/L (23-29); Chloride 110 mEq/L (98-107); Globulin 1.8 g/dL (2.4-3.5); Glucose 115 mg/dL (70-105); Magnesium 1.9 mg/dL (1.6-2.6); Osmolality,Calculated 295 (280-300); Potassium 4.1 mEq/L (3.5-5.1); Sodium 139 mEq/L (136-145); Total Protein 4.9 g/dL (6.4-8.9); eGFR For African Americans > 60 (> 60); eGFR For Non-African Americans > 60 (> 60)
[2021-03-07] MEDS ORDERED: Aspirin 81 MG TAB.CHEW PO SCH (09:00)
[2021-03-07] MEDS: cefTRIAXone 1,000 MG in Water for inj. (sterile) 10 ML IVP SCH (09:53)
[2021-03-07] MEDS: dexAMETHasone 4 MG TABLET PO SCH (09:55)
[2021-03-07] MEDS: 0.9 % Sodium Chloride 1,000 ML IVC SCH (10:20)
[2021-03-07] MEDS: *HR* Rivaroxaban 10 MG TABLET PO SCH ×2 (16:46→16:47)
[2021-03-08] MEDS ORDERED: Isovue-370 500 ML BOTTLE IVP ONE (08:05)
[2021-03-08] MEDS: cefTRIAXone 1,000 MG in Water for inj. (sterile) 10 ML IVP SCH (08:40)
[2021-03-08] MEDS: dexAMETHasone 4 MG TABLET PO SCH (08:40)
[2021-03-08] MEDS: Apixaban 5 MG TABLET PO SCH (20:17)
[2021-03-09] MEDS: cefTRIAXone 1,000 MG in Water for inj. (sterile) 10 ML IVP SCH (07:50)
[2021-03-09] MEDS: dexAMETHasone 4 MG TABLET PO SCH (07:50)
[2021-03-09] MEDS: Apixaban 5 MG TABLET PO SCH (07:50)
[2021-03-09 15:19] VITALS: BP 101/66; PULSE 69; TEMP 97.4; O2SAT 92
== END 2021-03-09 15:46 | disposition home health service (06) | DRG 280 ==
LOC: 3ANU → SUATTDRO 16:00
PROVIDERS: ADMIT Hospitalist; ATTEND Hospitalist